=== PATIENT | male | born 1955 | race Caucasian/White ===

== ENCOUNTER 2018-11-28 18:58 | Inpatient (IN) | payer BC ==
[2018-11-28 19:13] VITALS: BMI 34.1
[2018-11-28] MEDS ORDERED: Ibuprofen 200 MG TAB PO PRN (21:30)
[2018-11-28] MEDS ORDERED: Bacitracin 1 PK TOP SCH (21:45)
[2018-11-29] MEDS: traMADol HCl 50 MG TAB PO PRN (02:27)
[2018-11-29] MEDS: Acetaminophen 500 MG TAB PO SCH ×4 (02:27→17:13)
[2018-11-29 05:27] LABS: #Basophils 0.1 thou/uL (0.0-0.2); #Eosinphils 0.2 thou/uL (0.0-0.7); #Lymphocytes 0.8 thou/uL (1.20-3.40); #Neutrophils 5.9 thou/uL (1.40-6.50); %Basophils 1.7 % (0.0-1.0); %Eosinophils 2.8 % (0.0-10.0); %Lymphocytes 10.1 % (21.0-51.0); %Monocytes 12.2 % (0.0-10.0); %Neutrophils 73.1 % (42.0-75.0); Hemoglobin 8.7 g/dL (14.0-18.0); Mean Corpuscular HGB CONC 33.6 g/dL (32.0-36.0); Mean Corpuscular Volume 95.1 fL (78.0-98.0); Mean Platelet Volume 5.1 fL (7.4-10.4); Platelet Count 270 thou/uL (130-400); RBC Distribution Width 12.7 % (11.5-14.5); Red Blood Cell (RBC) Count 2.73 mill/uL (4.70-6.10); White Blood Cell (WBC) Count 8.1 thou/uL (4.8-10.8)
[2018-11-29 05:41] LABS: ALT (SGPT) 34 U/L (8-55); AST (SGOT) 29 U/L (5-34); Albumin 3.3 g/dL (3.4-4.8); Alkaline Phosphatase 52 U/L (40-150); Anion Gap 12 mmol/L (10-20); BUN (Urea Nitrogen) 13 mg/dL (8.4-25.7); Bilirubin, Total 0.9 mg/dL (0.2-1.2); Calc. Creatinine Clearance 163 mL/min (70-130); Carbon Dioxide 26 mmol/L (23-31); Chloride 102 mmol/L (98-107); Estimated GFR-MDRD Greater than 90; Globulin 2.4 g/dL (2.4-3.5); Glucose 109 mg/dL (80-115); Potassium 3.9 mmol/L (3.5-5.1); Protein, Total 5.7 g/dL (5.8-8.1); Sodium 136 mmol/L (136-145)
[2018-11-29] MEDS ORDERED: Non-Formulary Item 1 EACH (Ferrous Sulfate 325 MG) PO SCH (07:30)
[2018-11-29] MEDS: Polyethylene Glycol 3350 17 GM Packet PO SCH (08:01)
[2018-11-29] MEDS: Atenolol 25 MG TAB PO SCH (08:01)
[2018-11-29] MEDS: Thiamine 100 MG TAB PO SCH (08:01)
[2018-11-29] MEDS: Enoxaparin Sodium 30 MG/0.3 ML SYRINGE SC SCH ×2 (08:01→20:49)
[2018-11-29] MEDS: Folic Acid 1 MG TAB PO SCH (08:02)
[2018-11-29] MEDS: Ascorbic Acid 500 mg Chewable Tablet PO SCH ×2 (08:02→16:03)
[2018-11-29] MEDS: Gabapentin 300 MG CAP PO SCH ×3 (08:02→20:50)
[2018-11-29] MEDS: Senokot S 8.6-50 MG TAB PO SCH ×2 (08:02→20:50)
[2018-11-29] MEDS: Ferrous Sulfate 325 MG TAB PO SCH ×2 (08:02→16:03)
[2018-11-29] MEDS: Bacitracin 1 PK TOP SCH ×2 (12:23→20:49)
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
[2018-11-30] MEDS: Acetaminophen 500 MG TAB PO SCH ×5 (00:14→23:58)
[2018-11-30] MEDS: Ferrous Sulfate 325 MG TAB PO SCH ×2 (07:31→17:35)
[2018-11-30] MEDS: Ascorbic Acid 500 mg Chewable Tablet PO SCH ×2 (07:31→17:35)
[2018-11-30] MEDS: Thiamine 100 MG TAB PO SCH (08:51)
[2018-11-30] MEDS: Gabapentin 300 MG CAP PO SCH ×3 (08:51→21:39)
[2018-11-30] MEDS: Folic Acid 1 MG TAB PO SCH (08:51)
[2018-11-30] MEDS: Polyethylene Glycol 3350 17 GM Packet PO SCH (08:51)
[2018-11-30] MEDS: Senokot S 8.6-50 MG TAB PO SCH ×2 (08:51→21:39)
[2018-11-30] MEDS: Enoxaparin Sodium 30 MG/0.3 ML SYRINGE SC SCH ×2 (08:51→21:40)
[2018-11-30] MEDS: Atenolol 25 MG TAB PO SCH (08:52)
[2018-11-30] MEDS: Bacitracin 1 PK TOP SCH ×2 (08:53→21:48)
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
--- NOTE | 2018-11-30 20:45 | PRG ---
DATE OF SERVICE: 11/30/2018 SUBJECTIVE: The patient is awake and alert, feeling well. He has not been in therapy today as it is weakened, but is ready for more therapy tomorrow. He is having no pain except when he rotates in the bed and goes from supine to sit position. He is eating and drinking well. He is having normal bowel movements. OBJECTIVE: VITAL SIGNS: Shows his temperature is 97, pulse 68, respirations 16, O2 sats 95% on room air, blood pressure 126/69. ASSESSMENT: 1. Multiple pelvic fractures, appears to be slowly improving. No evidence of bleeding, with controlled pain on pain medication. 2. Urethral tear with hematuria resolved with Anna catheter in place. 3. Hypertension, controlled to goal. 4. History of EtOH abuse. No evidence of withdrawal. PLAN: 1. Continue PT/OT. 2. Continue pain relief as needed. 3. Continue Anna catheter until seen by urologist this week. 4. Arrange for Orthopedic consult in 2 weeks. Job ID: [id number]
[2018-12-01] MEDS: Acetaminophen 500 MG TAB PO SCH ×4 (05:17→23:47)
[2018-12-01] MEDS: Ferrous Sulfate 325 MG TAB PO SCH ×2 (07:30→17:30)
[2018-12-01] MEDS: Ascorbic Acid 500 mg Chewable Tablet PO SCH ×2 (07:31→17:29)
[2018-12-01] MEDS: Gabapentin 300 MG CAP PO SCH ×3 (09:01→20:37)
[2018-12-01] MEDS: Folic Acid 1 MG TAB PO SCH (09:02)
[2018-12-01] MEDS: Thiamine 100 MG TAB PO SCH (09:02)
[2018-12-01] MEDS: Polyethylene Glycol 3350 17 GM Packet PO SCH (09:02)
[2018-12-01] MEDS: Atenolol 25 MG TAB PO SCH (09:02)
[2018-12-01] MEDS: Senokot S 8.6-50 MG TAB PO SCH ×2 (09:02→20:37)
[2018-12-01] MEDS: Bacitracin 1 PK TOP SCH ×2 (09:03→20:37)
[2018-12-01] MEDS: Enoxaparin Sodium 30 MG/0.3 ML SYRINGE SC SCH ×2 (09:03→20:37)
[2018-12-01] MEDS: traMADol HCl 50 MG TAB PO PRN ×3 (09:08→20:40)
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
[2018-12-02] MEDS: Acetaminophen 500 MG TAB PO SCH ×3 (05:28→18:22)
[2018-12-02 06:00] LABS: #Basophils 0.1 thou/uL (0.0-0.2); #Eosinphils 0.2 thou/uL (0.0-0.7); #Lymphocytes 1.4 thou/uL (1.20-3.40); #Monocytes 0.7 thou/uL (0.11-0.59); %Basophils 1.1 % (0.0-1.0); %Lymphocytes 18.8 % (21.0-51.0); %Monocytes 9.2 % (0.0-10.0); Hemoglobin 9.4 g/dL (14.0-18.0); Mean Corpuscular HGB CONC 32.8 g/dL (32.0-36.0); Mean Corpuscular Hemoglobin 31.6 pg (27.0-31.0); Mean Corpuscular Volume 96.3 fL (78.0-98.0); Mean Platelet Volume 5.2 fL (7.4-10.4); Platelet Count 345 thou/uL (130-400); RBC Distribution Width 13.5 % (11.5-14.5); Red Blood Cell (RBC) Count 2.98 mill/uL (4.70-6.10); White Blood Cell (WBC) Count 7.4 thou/uL (4.8-10.8)
[2018-12-02] MEDS: Atenolol 25 MG TAB PO SCH (08:01)
[2018-12-02] MEDS: Bacitracin 1 PK TOP SCH ×2 (08:01→21:02)
[2018-12-02] MEDS: Ferrous Sulfate 325 MG TAB PO SCH ×2 (08:01→16:51)
[2018-12-02] MEDS: Folic Acid 1 MG TAB PO SCH (08:02)
[2018-12-02] MEDS: Ascorbic Acid 500 mg Chewable Tablet PO SCH ×2 (08:02→16:51)
[2018-12-02] MEDS: Thiamine 100 MG TAB PO SCH (08:02)
[2018-12-02] MEDS: Polyethylene Glycol 3350 17 GM Packet PO SCH (08:02)
[2018-12-02] MEDS: Gabapentin 300 MG CAP PO SCH ×3 (08:02→21:02)
[2018-12-02] MEDS: Senokot S 8.6-50 MG TAB PO SCH ×2 (08:02→21:02)
[2018-12-02] MEDS: Enoxaparin Sodium 30 MG/0.3 ML SYRINGE SC SCH ×2 (08:03→21:02)
[2018-12-02] MEDS: traMADol HCl 50 MG TAB PO PRN (08:03)
--- NOTE | 2018-12-02 20:46 | PRG ---
DATE OF SERVICE: 12/02/2018 SUBJECTIVE: The patient feels well. He has been walking with therapy twice around the station several times a day. He states he is having more pain in his shoulders when using the walker, but he is realizing he is not using it correctly. His pelvis is moving greatly. He understands that he is to have follow up with his urologist later this week with retrograde pyelogram and with his orthopedic surgeons next week. OBJECTIVE: VITAL SIGNS: His temperature is 96.2, pulse 73, respirations 18, O2 saturations 97% on room air, blood pressure is 176/69, which is higher than it had been in the previous several days. LUNGS: Clear. CARDIAC: Regular rhythm. ABDOMEN: Soft and nontender. ASSESSMENT: 1. Resolving pelvic fracture with decreasing pain. 2. Resolving urethral membranous tear with followup retrograde pyelogram scheduled for later this week. 3. Hypertension, controlled to goal. 4. History of EtOH abuse. No evidence of withdrawal. PLAN: 1. Continue PT/OT. 2. Continue pain relief. 3. Follow up with urologist this week and trauma surgeon next week. Job ID: [id number]
[2018-12-03] MEDS: Acetaminophen 500 MG TAB PO SCH ×4 (04:09→17:33)
[2018-12-03] MEDS: Ferrous Sulfate 325 MG TAB PO SCH ×2 (08:27→15:33)
[2018-12-03] MEDS: Ascorbic Acid 500 mg Chewable Tablet PO SCH ×2 (08:27→15:32)
[2018-12-03] MEDS: Enoxaparin Sodium 30 MG/0.3 ML SYRINGE SC SCH ×2 (09:11→20:42)
[2018-12-03] MEDS: Gabapentin 300 MG CAP PO SCH ×3 (09:12→20:42)
[2018-12-03] MEDS: Folic Acid 1 MG TAB PO SCH (09:12)
[2018-12-03] MEDS: Senokot S 8.6-50 MG TAB PO SCH ×2 (09:13→20:42)
[2018-12-03] MEDS: Atenolol 25 MG TAB PO SCH (09:13)
[2018-12-03] MEDS: Thiamine 100 MG TAB PO SCH (09:13)
[2018-12-03] MEDS: Bacitracin 1 PK TOP SCH ×2 (09:14→20:42)
[2018-12-03] MEDS: Polyethylene Glycol 3350 17 GM Packet PO SCH ×2 (09:15→14:20)
[2018-12-03] MEDS: traMADol HCl 50 MG TAB PO PRN (11:30)
[2018-12-03] MEDS ORDERED: Docusate 100 MG CAP PO SCH (21:00)
[2018-12-04] MEDS: Acetaminophen 500 MG TAB PO SCH ×5 (05:19→23:48)
--- NOTE | 2018-12-04 07:41 | RAD ---
4 views left elbow: 12/04/2018 COMPARISON: None HISTORY: Injury, trauma, pain FINDINGS: No significant elbow joint effusion is apparent on the lateral examination. There is soft t issue swelling at the level of the elbow joint laterally. There are corticated osseous fragments adjacent to the medial epicondyle of the distal left humerus. Nonspecific punctate calcification is seen overlying the soft tissues lateral to the left elbow joint . No displaced fracture or dislocation seen. IMPRESSION: Prominent soft tissue swelling seen laterally. If there is concern for an associated liga mentous or tendinous injury, left elbow MRI suggested. No displaced fracture or dislocation is evident.
[2018-12-04] MEDS: Ferrous Sulfate 325 MG TAB PO SCH ×2 (07:43→15:38)
[2018-12-04] MEDS: Ascorbic Acid 500 mg Chewable Tablet PO SCH ×2 (07:43→15:38)
[2018-12-04] MEDS ORDERED: Polyethylene Glycol 3350 17 GM Packet PO SCH (09:00)
[2018-12-04] MEDS: Atenolol 25 MG TAB PO SCH (09:23)
[2018-12-04] MEDS: Gabapentin 300 MG CAP PO SCH ×3 (09:23→20:48)
[2018-12-04] MEDS: Enoxaparin Sodium 30 MG/0.3 ML SYRINGE SC SCH ×2 (09:23→20:48)
[2018-12-04] MEDS: Folic Acid 1 MG TAB PO SCH (09:23)
[2018-12-04] MEDS: Senokot S 8.6-50 MG TAB PO SCH ×2 (09:24→20:48)
[2018-12-04] MEDS: Bacitracin 1 PK TOP SCH ×2 (09:24→20:49)
[2018-12-04] MEDS: Thiamine 100 MG TAB PO SCH (09:24)
--- NOTE | 2018-12-04 09:30 | PRG ---
DATE OF SERVICE: 12/03/2018 SUBJECTIVE: The patient feels well with decreasing pelvic pain, but is still having some swelling and instability in his left elbow, and Physical Therapy has requested he see orthopedic surgeon for possible ligament damage. OBJECTIVE: VITAL SIGNS: Temperature of 98, pulse 74, respirations 18, O2 sats 96% on room air, blood pressure is 146/72. LUNGS: Clear. CARDIAC: Regular rhythm. MUSCULOSKELETAL: Elbow x-ray to my evaluation shows no fracture, but left elbow is markedly swollen and does appear to have some instability on pronation and supination. Pelvis is minimally tender to palpation. ASSESSMENT: 1. Resolving pelvic fracture. Follow up with an orthopedic surgeon next week. 2. Possible radioulnar or collateral ligament damage to left elbow. Follow up with an orthopedic surgeon next week. 3. Urethral membranous tear with followup with Urology this week. PLAN: Continue PT/OT. Continue pain relief as needed. Follow up with Ortho and Urology in the next several days. Job ID: [id number]
--- NOTE | 2018-12-04 21:11 | PRG ---
DATE OF SERVICE: 12/04/2018 SUBJECTIVE: The patient is lying in bed, feels well, having decreasing pain in his pelvis and is asking about his left elbow x-ray. The x-ray did not reveal any significant bony abnormalities, but elbow MRI was suggested. OBJECTIVE: LUNGS: Clear. CARDIAC: Showed regular rhythm. ABDOMEN: Soft and nontender. SKIN AND EXTREMITIES: Show swollen left elbow with tenderness upon pronation and supination. PELVIC: Shows minimal tenderness to palpation. ASSESSMENT: 1. Resolving pelvic fracture. 2. Urethral tear with Anna catheter in place. 3. Probable ligament damage of the elbow. PLAN: 1. MRI of the left elbow. Recommendation of radiologist. 2. Follow up with urologist on Saturday with retrograde urethrogram. 3. Follow up with orthopedic surgeon next week. Job ID: [id number]
[2018-12-05] MEDS: Acetaminophen 500 MG TAB PO SCH ×3 (05:33→19:19)
[2018-12-05] MEDS: Enoxaparin Sodium 30 MG/0.3 ML SYRINGE SC SCH ×2 (07:59→20:46)
[2018-12-05] MEDS: Ferrous Sulfate 325 MG TAB PO SCH ×2 (07:59→15:44)
[2018-12-05] MEDS: Gabapentin 300 MG CAP PO SCH ×3 (07:59→20:46)
[2018-12-05] MEDS: Atenolol 25 MG TAB PO SCH (07:59)
[2018-12-05] MEDS: Senokot S 8.6-50 MG TAB PO SCH ×2 (07:59→20:46)
[2018-12-05] MEDS: Thiamine 100 MG TAB PO SCH (07:59)
[2018-12-05] MEDS: Ascorbic Acid 500 mg Chewable Tablet PO SCH ×2 (08:00→15:44)
[2018-12-05] MEDS: Bacitracin 1 PK TOP SCH ×2 (08:00→20:46)
[2018-12-05] MEDS: Folic Acid 1 MG TAB PO SCH (08:00)
[2018-12-05] MEDS: traMADol HCl 50 MG TAB PO PRN (08:04)
[2018-12-06] MEDS: Acetaminophen 500 MG TAB PO SCH ×4 (05:21→17:36)
[2018-12-06] MEDS: traMADol HCl 50 MG TAB PO PRN (05:21)
[2018-12-06] MEDS: Senokot S 8.6-50 MG TAB PO SCH ×2 (08:07→20:06)
[2018-12-06] MEDS: Atenolol 25 MG TAB PO SCH (08:07)
[2018-12-06] MEDS: Gabapentin 300 MG CAP PO SCH ×3 (08:07→20:06)
[2018-12-06] MEDS: Thiamine 100 MG TAB PO SCH (08:07)
[2018-12-06] MEDS: Folic Acid 1 MG TAB PO SCH (08:07)
[2018-12-06] MEDS: Ascorbic Acid 500 mg Chewable Tablet PO SCH ×2 (08:08→15:53)
[2018-12-06] MEDS: Enoxaparin Sodium 30 MG/0.3 ML SYRINGE SC SCH ×2 (08:08→20:06)
[2018-12-06] MEDS: Ferrous Sulfate 325 MG TAB PO SCH ×2 (08:08→15:53)
[2018-12-06] MEDS: Bacitracin 1 PK TOP SCH ×2 (08:08→20:06)
--- NOTE | 2018-12-06 15:25 | PRG ---
DATE OF SERVICE: 12/06/2018 DISCUSSION: Mr. Oliva is doing well, resting comfortably in bed. He has friends visiting. He continues to have swelling in the radial aspect of his left elbow, but has full range of motion. He feels like the elbow bone slips when he is kind of holding his walker and trying to turn or twist. He is scheduled for an MRI to rule out any damage to the ligament, holding the bones to gather/retinacular tear. No other concerns or questions. OBJECTIVE: VITAL SIGNS: He is afebrile. Heart rate is 67, respirations 18, oxygen saturation 96% on room air, blood pressure 126/65. CARDIOVASCULAR: S1 and S2 plus. RESPIRATORY: Normal vesicular breath sounds. ABDOMEN: Soft, nontender. Bowel sounds in all quadrants extremities without cyanosis or clubbing. CENTRAL NERVOUS SYSTEM: Awake and responsive. Generalized weakness. IMPRESSION: 1. Pelvic fracture. 2. Urethral tear, requiring Anna catheter. 3. Swelling, left elbow, likely due to ligament injury. 4. Hypertension. 5. Improving deconditioning. PLAN: 1. Continue current medications. 2. Nutritional support with low-sodium diet. 3. Monitor blood pressure. 4. Orthopedic precautions. 5. Physical Therapy. 6. DVT and stress ulcer prophylaxis. 7. Await MRI of the elbow and outpatient followup with Orthopedics. Job ID: [id number]
[2018-12-07] MEDS: Acetaminophen 500 MG TAB PO SCH ×5 (05:30→23:24)
[2018-12-07] MEDS: Thiamine 100 MG TAB PO SCH (08:23)
[2018-12-07] MEDS: Atenolol 25 MG TAB PO SCH (08:24)
[2018-12-07] MEDS: Ascorbic Acid 500 mg Chewable Tablet PO SCH ×2 (08:24→15:53)
[2018-12-07] MEDS: Senokot S 8.6-50 MG TAB PO SCH ×2 (08:24→20:26)
[2018-12-07] MEDS: Folic Acid 1 MG TAB PO SCH (08:24)
[2018-12-07] MEDS: Ferrous Sulfate 325 MG TAB PO SCH ×2 (08:24→15:53)
[2018-12-07] MEDS: Bacitracin 1 PK TOP SCH ×2 (08:24→20:27)
[2018-12-07] MEDS: Enoxaparin Sodium 30 MG/0.3 ML SYRINGE SC SCH ×2 (08:25→20:25)
[2018-12-07] MEDS: Gabapentin 300 MG CAP PO SCH ×3 (08:25→20:27)
--- NOTE | 2018-12-07 15:22 | PRG ---
DATE OF SERVICE: 12/07/2018 SUBJECTIVE: Mr. Doll is doing well except he noticed sudden onset of left great toe pain. On examination, it is red, swollen, and tender in the first MTP joint. He does have a history of gout. He also has a rash in his face, in the nasolabial folds consistent with seborrhea. He is doing well, otherwise. OBJECTIVE: VITAL SIGNS: He is afebrile, heart rate 69, respirations 18, oxygen saturation 98% on room air, and blood pressure 139/69. CARDIOVASCULAR SYSTEM: S1 and S2 plus. RESPIRATORY SYSTEM: Normal vesicular breath sounds. ABDOMEN: Soft and nontender. Bowel sounds heard in all quadrants. EXTREMITIES: Without cyanosis or clubbing. Left MTP joint with swelling, redness, and tenderness. Left elbow does show swelling, but full range of motion. CENTRAL NERVOUS SYSTEM: Awake and responsive. Generalized weakness. IMPRESSION: 1. Pelvic fracture. 2. Urethral tear, requiring Anna catheter. 3. Left elbow swelling, likely due to ligament injury. 4. Hypertension. 5. Gout. 6. Seborrheic dermatitis. PLAN: 1. Continue current medications. We will add colchicine 0.6 mg p.o. b.i.d. p.r.n. and triamcinolone topical steroid cream to his seborrheic dermatitis. 2. Low-sodium diet. 3. DVT prophylaxis. 4. Decubitus precautions. 5. Stress ulcer prophylaxis. 6. Has appointment with Orthopedics tomorrow. 7. Physical therapy. 8. Dr. Arelis godinez. Job ID: [id number]
[2018-12-07] MEDS: traMADol HCl 50 MG TAB PO PRN (20:26)
[2018-12-07] MEDS: Colchicine 0.6 MG TAB PO SCH (20:27)
[2018-12-07] MEDS: Betamethasone Val 0.1% OINT 15 GM TUBE TOP SCH (20:30)
[2018-12-08] MEDS: Acetaminophen 500 MG TAB PO SCH ×3 (05:39→17:41)
[2018-12-08 05:40] LABS: #Basophils 0.1 thou/uL (0.0-0.2); #Eosinphils 0.2 thou/uL (0.0-0.7); #Lymphocytes 1.1 thou/uL (1.20-3.40); #Monocytes 0.6 thou/uL (0.11-0.59); #Neutrophils 5.8 thou/uL (1.40-6.50); %Basophils 1.1 % (0.0-1.0); %Eosinophils 2.2 % (0.0-10.0); %Lymphocytes 14.7 % (21.0-51.0); %Monocytes 7.7 % (0.0-10.0); %Neutrophils 74.4 % (42.0-75.0); Hemoglobin 9.7 g/dL (14.0-18.0); Mean Corpuscular HGB CONC 32.4 g/dL (32.0-36.0); Mean Corpuscular Hemoglobin 31.3 pg (27.0-31.0); Mean Corpuscular Volume 96.8 fL (78.0-98.0); Platelet Count 494 thou/uL (130-400); Red Blood Cell (RBC) Count 3.11 mill/uL (4.70-6.10); White Blood Cell (WBC) Count 7.8 thou/uL (4.8-10.8)
[2018-12-08 05:55] LABS: Anion Gap 14 mmol/L (10-20); BUN (Urea Nitrogen) 12 mg/dL (8.4-25.7); Calc. Creatinine Clearance 160 mL/min (70-130); Calcium 9.2 mg/dL (7.8-10.44); Carbon Dioxide 28 mmol/L (23-31); Chloride 102 mmol/L (98-107); Estimated GFR-MDRD Greater than 90; Glucose 102 mg/dL (80-115); Potassium 4.7 mmol/L (3.5-5.1); Sodium 139 mmol/L (136-145)
[2018-12-08] MEDS: Ferrous Sulfate 325 MG TAB PO SCH ×2 (08:16→17:40)
[2018-12-08] MEDS: Ascorbic Acid 500 mg Chewable Tablet PO SCH ×2 (08:16→17:41)
[2018-12-08] MEDS: Atenolol 25 MG TAB PO SCH (08:17)
[2018-12-08] MEDS: Bacitracin 1 PK TOP SCH ×3 (08:17→20:46)
[2018-12-08] MEDS: Colchicine 0.6 MG TAB PO SCH ×2 (08:18→20:46)
[2018-12-08] MEDS: Betamethasone Val 0.1% OINT 15 GM TUBE TOP SCH ×2 (08:18→20:46)
[2018-12-08] MEDS: Enoxaparin Sodium 30 MG/0.3 ML SYRINGE SC SCH ×2 (08:18→20:46)
[2018-12-08] MEDS: Folic Acid 1 MG TAB PO SCH (08:19)
[2018-12-08] MEDS: Gabapentin 300 MG CAP PO SCH ×3 (08:19→20:47)
[2018-12-08] MEDS: Thiamine 100 MG TAB PO SCH (08:19)
[2018-12-08] MEDS: Senokot S 8.6-50 MG TAB PO SCH ×2 (08:19→20:47)
[2018-12-08] MEDS: traMADol HCl 50 MG TAB PO PRN ×3 (08:20→20:46)
[2018-12-09] MEDS: Acetaminophen 500 MG TAB PO SCH ×5 (00:38→23:33)
--- NOTE | 2018-12-09 07:28 | PRG ---
DATE OF SERVICE: 12/08/2018 SUBJECTIVE: The patient feels well, has seen the urologist and has had his Anna removed with normal retrograde urethrogram. He, however, has had pelvic x-ray, shows some widening of the left pelvic pubic ramus fractures and diaphysis and we will discuss with surgeon Job ID: [id number]
[2018-12-09] MEDS: Atenolol 25 MG TAB PO SCH (08:02)
[2018-12-09] MEDS: Ferrous Sulfate 325 MG TAB PO SCH ×2 (08:02→17:28)
[2018-12-09] MEDS: Ascorbic Acid 500 mg Chewable Tablet PO SCH ×2 (08:02→17:28)
[2018-12-09] MEDS: Bacitracin 1 PK TOP SCH (08:03)
[2018-12-09] MEDS: Colchicine 0.6 MG TAB PO SCH ×2 (08:04→21:00)
[2018-12-09] MEDS: Senokot S 8.6-50 MG TAB PO SCH ×2 (08:04→21:00)
[2018-12-09] MEDS: Gabapentin 300 MG CAP PO SCH ×3 (08:04→21:00)
[2018-12-09] MEDS: Enoxaparin Sodium 30 MG/0.3 ML SYRINGE SC SCH ×2 (08:04→21:00)
[2018-12-09] MEDS: Folic Acid 1 MG TAB PO SCH (08:04)
[2018-12-09] MEDS: traMADol HCl 50 MG TAB PO PRN ×3 (08:05→20:59)
[2018-12-09] MEDS: Thiamine 100 MG TAB PO SCH (08:05)
[2018-12-09] MEDS: Betamethasone Val 0.1% OINT 15 GM TUBE TOP SCH ×2 (08:11→21:00)
--- NOTE | 2018-12-09 22:14 | PRG ---
DATE OF SERVICE: SUBJECTIVE: The patient feels well. He has seen orthopedic surgeon for discharge. fractures, but agrees that he needs an MRI of his left elbow, and we will follow up with him on Saturday when MRI is done. OBJECTIVE: VITAL SIGNS: Temperature is 97.3, pulse 64, respirations 20, O2 sats 95% on room air, and blood pressure 137/63. LUNGS: Clear. CARDIAC: Regular rhythm. EXTREMITIES: Left elbow is swollen with no erythema but instability. ASSESSMENT: 1. Resolving pelvic fracture. 2. Resolving urethral tear. 3. Persistent left elbow instability. PLAN: MRI of the left elbow on Saturday and follow up with orthopedic surgeon. Job ID: [id number]
[2018-12-10] MEDS: Acetaminophen 500 MG TAB PO SCH ×4 (05:39→23:44)
--- NOTE | 2018-12-10 07:37 | PRG ---
DATE OF SERVICE: 12/08/2018 SUBJECTIVE: The patient feels well. His Anna catheter removed. Antibiotics have been finished. He is passing clear urine. He is ambulating and walking in the martinez with controlled pain, on occasional tramadol. He has seen urologist, has been cleared for discharge. He is due to see orthopedic surgeon tomorrow to evaluate his pelvic fractures and evaluate his possible ligament damage of left elbow. OBJECTIVE: VITAL SIGNS: Temperature 97.7, pulse 73, respirations 20, O2 sats 96% on room air, and blood pressure 141/67. LUNGS: Clear. CARDIAC: Regular rhythm. ABDOMEN: Soft and nontender. EXTREMITIES: Left elbow is swollen with unstable range of motion. ASSESSMENT: 1. Resolving pelvic fracture with incomplete progressive healing. 2. Left elbow ligament damage, awaiting orthopedic surgeon. 3. Urethral damage, resolved, clear urine. No hematuria. PLAN: 1. Continue PT/OT. 2. Await Orthopedic consult. 3. Schedule MRI left elbow. Job ID: [id number]
[2018-12-10] MEDS: traMADol HCl 50 MG TAB PO PRN (08:02)
[2018-12-10] MEDS: Colchicine 0.6 MG TAB PO SCH ×2 (08:03→20:59)
[2018-12-10] MEDS: Thiamine 100 MG TAB PO SCH (08:03)
[2018-12-10] MEDS: Gabapentin 300 MG CAP PO SCH ×3 (08:03→20:59)
[2018-12-10] MEDS: Folic Acid 1 MG TAB PO SCH (08:03)
[2018-12-10] MEDS: Atenolol 25 MG TAB PO SCH (08:03)
[2018-12-10] MEDS: Ferrous Sulfate 325 MG TAB PO SCH ×2 (08:03→15:35)
[2018-12-10] MEDS: Senokot S 8.6-50 MG TAB PO SCH ×2 (08:03→20:59)
[2018-12-10] MEDS: Enoxaparin Sodium 30 MG/0.3 ML SYRINGE SC SCH ×2 (08:03→20:57)
[2018-12-10] MEDS: Ascorbic Acid 500 mg Chewable Tablet PO SCH ×2 (08:03→15:35)
[2018-12-10] MEDS: Betamethasone Val 0.1% OINT 15 GM TUBE TOP SCH ×2 (08:04→20:58)
--- NOTE | 2018-12-10 20:46 | PRG ---
DATE OF SERVICE: 12/10/2018 SUBJECTIVE: The patient feels well, walking in the martinez and the room with no difficulty, awaiting MRI of the left elbow because of persistent instability of the elbow and is not requiring any pain medication. He is having no difficulty with urination. OBJECTIVE: VITAL SIGNS: Temperature is 97.9, pulse 61, respirations 18, O2 sats 96% on room air, and blood pressure 137/65. LUNGS: Clear. CARDIAC: Shows regular rhythm. ABDOMEN: Soft and nontender. EXTREMITIES: Left elbow is swollen with some instability. ASSESSMENT AND PLAN: 1. Resolving pelvic fracture with decreasing pain. 2. Resolving urethral injury with no further hematuria. 3. Possible left elbow derangement. Awaiting MRI in 2 days and follow up with orthopedic surgeon. Job ID: [id number]
[2018-12-11] MEDS: Acetaminophen 500 MG TAB PO SCH ×3 (05:42→17:38)
[2018-12-11] MEDS: Enoxaparin Sodium 30 MG/0.3 ML SYRINGE SC SCH ×2 (08:48→21:07)
[2018-12-11] MEDS: Betamethasone Val 0.1% OINT 15 GM TUBE TOP SCH ×2 (08:48→21:07)
[2018-12-11] MEDS: Ascorbic Acid 500 mg Chewable Tablet PO SCH ×2 (08:49→15:38)
[2018-12-11] MEDS: Atenolol 25 MG TAB PO SCH (08:49)
[2018-12-11] MEDS: Gabapentin 300 MG CAP PO SCH ×3 (08:49→21:07)
[2018-12-11] MEDS: Folic Acid 1 MG TAB PO SCH (08:49)
[2018-12-11] MEDS: Ferrous Sulfate 325 MG TAB PO SCH ×2 (08:50→15:38)
[2018-12-11] MEDS: Senokot S 8.6-50 MG TAB PO SCH ×2 (08:50→21:07)
[2018-12-11] MEDS: Thiamine 100 MG TAB PO SCH (08:50)
[2018-12-11] MEDS: traMADol HCl 50 MG TAB PO PRN (21:08)
[2018-12-12] MEDS: Acetaminophen 500 MG TAB PO SCH ×5 (00:14→18:00)
--- NOTE | 2018-12-12 07:33 | PRG ---
DATE OF SERVICE: 12/11/2018 SUBJECTIVE: The patient feels well with no complaints. Awaiting MRI and further evaluation of his left elbow tomorrow. He is walking in the martinez, no difficulty. He has had no problems with urination. OBJECTIVE: VITAL SIGNS: Show him to have temperature 97.2, heart rate 67, respirations 20, O2 saturations 95% on room air, and blood pressure is 138/65. LUNGS: Clear. CARDIAC: Showed regular rhythm. ABDOMEN: Soft and nontender. EXTREMITIES: Left elbow is deformed and swollen with some instability. There is minimal tenderness to palpation of the pelvis. ASSESSMENT: 1. Resolving pelvic fractures with persistent, but decreasing pain and no instability. 2. Resolving deconditioning, walking in the martinez without difficulty. 3. Resolved urethral traumatic tear with no further hematuria. Normal retrograde urethrogram and has been cleared by Urology after Anna catheter removed last week. 4. Left elbow derangement, possibly ligament damage. Awaiting MRI and Orthopedic consultation today prior to discharge. PLAN: Obtain MRI today. Obtain Orthopedic consultation. Discharge tomorrow. Job ID: [id number]
[2018-12-12] MEDS: Gabapentin 300 MG CAP PO SCH ×2 (07:50→15:17)
[2018-12-12] MEDS: Ferrous Sulfate 325 MG TAB PO SCH ×2 (07:50→15:17)
[2018-12-12] MEDS: Thiamine 100 MG TAB PO SCH (07:51)
[2018-12-12] MEDS: Folic Acid 1 MG TAB PO SCH (07:51)
[2018-12-12] MEDS: Senokot S 8.6-50 MG TAB PO SCH (07:51)
[2018-12-12] MEDS: Ascorbic Acid 500 mg Chewable Tablet PO SCH ×2 (07:51→15:17)
[2018-12-12] MEDS: Atenolol 25 MG TAB PO SCH (07:51)
[2018-12-12] MEDS: traMADol HCl 50 MG TAB PO PRN (07:52)
[2018-12-12] MEDS: Betamethasone Val 0.1% OINT 15 GM TUBE TOP SCH (07:53)
[2018-12-12] MEDS: Enoxaparin Sodium 30 MG/0.3 ML SYRINGE SC SCH (07:53)
[2018-12-12 18:46] VITALS: BP 173/74; TEMP 98.5
== END 2018-12-12 18:45 | disposition home or self-care (01) | DRG 561 ==
LOC: NAV ACUTE 18:58
PROVIDERS: ADMIT Internal Medicine; ATTEND Internal Medicine
DX: S32.19XD Other fracture of sacrum, subsequent encounter for fracture with routine healing (principal); I10 Essential (primary) hypertension; S32.492D Other specified fracture of left acetabulum, subsequent encounter for fracture with routine healing; V09.9XXD Pedestrian injured in unspecified transport accident, subsequent encounter; T14.8XXD Other injury of unspecified body region, subsequent encounter; S37.33XD Laceration of urethra, subsequent encounter; Z46.6 Encounter for fitting and adjustment of urinary device; R53.81 Other malaise; S32.592D Other specified fracture of left pubis, subsequent encounter for fracture with routine healing; M10.9 Gout, unspecified; L21.8 Other seborrheic dermatitis; S59.802D Other specified injuries of left elbow, subsequent encounter
CPT/HCPCS: 36415; 80048; 80053; 84550; 85025; 87086; J1650